=== PATIENT | female | born 1980 | race Asian ===

== ENCOUNTER 2018-03-31 21:38 | Emergency (ER) | payer BC ==
--- NOTE | 2018-03-31 22:25 | ED Physician Chart ---
ED Chief Complaint/HPI - Patient Information Date Seen:: 03/31/18 Time Seen:: 22:20 Chief Complaint:: abd pain History of Present Illness:: 38 yr old female with lower abd pains and upper pains for 3 wks with pressure like no vomiting or diarhea seen at urgent care and had ultrasound and labs and ua Allergies:: Allergies Allergy/AdvReac Type Severity Reaction Status Date / Time No Known Allergies Allergy Verified 03/31/18 22:05 Vitals:: Vital Signs - 8 hr 03/31/18 22:08 Temp 99.0 F HR 84 RR 18 BP 115/76 O2 Sat % 96 ED Review of Systems - Review of Systems General/Constitutional: No fever, No chills, No weight loss, No weakness, No diaphoresis, No edema, No loss of appetite Skin: No skin lesions, No rash, No bruising Head: No headache, No light-headedness Eyes: No loss of vision, No pain, No diplopia ENT: No earache, No nasal drainage, No sore throat, No tinnitus Neck: No neck pain, No swelling, No thyromegaly, No stiffness, No mass noted Cardio Vascular: No chest pain, No palpitations, No PND, No orthopnea, No edema Pulmonary: No SOB, No cough, No sputum, No wheezing GI: No nausea, No vomiting, No diarrhea, No pain, No melena, No hematochezia, No constipation, No hematemesis G/U: No dysuria, No frequency, No hematuria Musculoskeletal: No bone or joint pain, No back pain, No muscle pain Endocrine: No polyuria, No polydipsia Psychiatric: No prior psych history, No depression, No anxiety, No suicidal ideation Hematopoietic: No bruising, No lymphadenopathy Allergic/Immuno: No urticaria, No angioedema Neurological: No syncope, No focal symptoms, No weakness, No paresthesia, No headache, No seizure, No dizziness, No confusion, No vertigo ED Past Medical History - Past Medical History Past Medical History: No significant medical hx (lumbar disc surgery carpal tunnel ) Family Medical History - Family Member Father Hx Family Hypertension: Yes ED Physical Exam - Physical Examination General/Constitutional: Awake, Well-developed, well-nourished, Alert, No distress, GCS 15, Non-toxic appearing, Ambulatory Head: Atraumatic Eyes: Lids, conjuctiva normal, PERRL, EOMI Skin: Nl inspection, No rash, No skin lesions, No ecchymosis, Well hydrated, No lymphadenopathy ENMT: External ears, nose nl, Nasal exam nl, Lips, teeth, gums nl Neck: Nontender, Full ROM w/o pain, No JVD, No nuchal rigidity, No bruit, No mass, No stridor Respiratory: Nl effort/Exclusion, Clear to Auscultation, No Wheeze/Rhonchi/Rales Cardio Vascular: RRR, No murmur, gallop, rubs, NL S1 S2 GI: No organomegaly, No hernia, Normal BS's, Nondistended, No mass/bruits, No McBurney tenderness Other GI comments:: lower abd tend. no rebound : No CVA tenderness Extremities: No tenderness or effusion, Full ROM, normal strength in all extremities, No edema, Normal digits & nails Neuro/Psych: Alert/oriented, DTR's symmetric, Normal sensory exam, Normal motor strength, Judgement/insight normal, Mood normal, Normal gait, No focal deficits Misc: Normal back, No paraspinal tenderness ED Assessment - Assessment General Assessment: abd pain ED Septic Shock - . Is Septic Shock (SBP<90, OR Lactate>4 mmol\L) present?: No - <6hrs of presentation: Vital Signs: Vital Signs - 8 hr 03/31/18 22:08 Temp 99.0 F HR 84 RR 18 BP 115/76 O2 Sat % 96
[2018-03-31] MEDS ORDERED: Morphine Sulfate 4 mg/mL 1mL Syr IV STA (22:36)
[2018-03-31] MEDS ORDERED: Morphine Sulfate 4 mg/mL 1mL Syr ONE (22:49)
[2018-03-31] MEDS ORDERED: Sodium Chloride 0.9% 1,000 ML IV ONE (23:01)
--- NOTE | 2018-04-01 08:39 | Diagnostic Imaging Report ---
CT scan of the abdomen and pelvis without intravenous contrast History: Pain Total DLP equals 365 CTDI equals 7.7 Axial sections were obtained from the xiphoid process down to the pubic symphysis. The liver demonstrates a normal size and contour. No focal lesions are seen. The spleen appears normal. No abnormalities are seen in the region of the pancreas. The kidneys appear normal bilaterally. The exam of the pelvis demonstrates preservation of normal fat planes. There is enlargement of the uterus. An IUD is seen in the endometrium which comes into close proximity to the fundal margin of the uterus. Significance should be correlated clinically. Small amount of fluid seen in the cul-de-sac region of the pelvis. IMPRESSION: 1. Enlarged uterus 2. IUD. The device is situated within several millimeters of the anterior margin of the uterus. Significance should be correlated clinically. 3. Small amount of free fluid in the cul-de-sac region and pelvis. Findings may be on a physiologic basis and should be correlated clinically and with the menstrual status.
== END 2018-04-01 01:28 | disposition home or self-care (01) ==
LOC: ER 21:38
DX: R10.30 Lower abdominal pain, unspecified (principal)
CPT/HCPCS: 81025-TC; 96374